=== PATIENT | female | born 1990 | race American Indian/Alaskan Native ===

== ENCOUNTER 2020-10-22 11:46 | Emergency (ER) | payer SELFPAY ==
[2020-10-22] MEDS ORDERED: ALBUTEROL 2.5 MG/3 ML NEBU IH ONE ×3 (11:54→12:06)
[2020-10-22] MEDS ORDERED: dexAMETHasone 20 MG/5 ML VIAL IV ONE (12:05)
[2020-10-22] MEDS ORDERED: IPRATROPIUM 0.02% NEBU 2.5 ML IH ONE ×2 (12:05→12:07)
--- NOTE | 2020-10-22 12:14 | Emergency Department Report ---
ED Asthma HPI - General Chief Complaint: Adult Asthma Stated Complaint: ASTHMA Time Seen by Provider: 10/22/20 12:05 Source: patient Mode of arrival: Ambulatory Limitations: No Limitations - History of Present Illness Initial Comments: 29-year-old -[place]os[place] female with a history of asthma presents to the emergency room in respiratory distress having an asthma attack. Patient states her symptoms started last night. She reports she has been using her nebulizer machine but feels that her medicine may be . Patient states that [place]. Patient denies any fever chills does report shortness of breath wheezing and not able to move air. MD Complaint: "asthma attack", shortness of breath, wheezing Onset/Timin -: days(s) Asthma History: childhood onset, history of frequent attac, history of prior ED visit, previously intubated (As a child) Severity: severe Context: allergen exposure Associated Symptoms: dry cough Treatments Prior to Arrival: inhaled bronchodilator - Related Data Current Asthma Therapy: inhaled bronchodilator Previous Rx's Medication Instructions Recorded Last Taken Type Albuterol Sulfate [Albuterol 0.63% 0.63 mg IH TID PRN #270 ml 10/22/20 Unknown Rx NEBS] Albuterol Sulfate [Proventil Hfa] 6.7 gm IH QID PRN #1 hfa.aer.ad 10/22/20 Unknown Rx Fluticasone/Salmeterol [Advair 1 each IH BID #1 blst.w.dev 10/22/20 Unknown Rx 250-50 Diskus] Prednisone [predniSONE 10 mg 10 mg PO .TAPER #1 tab.ds.pk 10/22/20 Unknown Rx (6-Day Pack, 21 Tabs)] Allergies Allergy/AdvReac Type Severity Reaction Status Date / Time No Known Allergies Allergy Unverified 10/22/20 11:47 ED Review of Systems ROS: Stated complaint: ASTHMA Other details as noted in HPI Comment: All other systems reviewed and negative ED Past Medical Hx - Past Medical History Previous Medical History?: Yes Hx Asthma: Yes - Medications Home Medications: Home Medications Medication Instructions Recorded Confirmed Last Taken Type Albuterol Sulfate [Albuterol 0.63% 0.63 mg IH TID PRN #270 ml 10/22/20 Unknown Rx NEBS] Albuterol Sulfate [Proventil Hfa] 6.7 gm IH QID PRN #1 hfa.aer.ad 10/22/20 Unknown Rx Fluticasone/Salmeterol [Advair 1 each IH BID #1 blst.w.dev 10/22/20 Unknown Rx 250-50 Diskus] Prednisone [predniSONE 10 mg 10 mg PO .TAPER #1 tab.ds.pk 10/22/20 Unknown Rx (6-Day Pack, 21 Tabs)] ED Physical Exam - General Limitations: No Limitations General appearance: alert, in no apparent distress - Head Head exam: Present: atraumatic, normocephalic - Eye Eye exam: Present: normal appearance - ENT ENT exam: Present: mucous membranes moist - Neck Neck exam: Present: normal inspection, full ROM - Respiratory Respiratory exam: Present: respiratory distress, wheezes, accessory muscle use, prolonged expiratory - Cardiovascular Cardiovascular Exam: Present: tachycardia - GI/Abdominal GI/Abdominal exam: Present: soft. Absent: distended, tenderness - Extremities Exam Extremities exam: Present: normal inspection - Back Exam Back exam: Present: normal inspection - Neurological Exam Neurological exam: Present: alert, oriented X3 - Psychiatric Psychiatric exam: Present: normal affect, normal mood ED Course Vital Signs 10/22/20 10/22/20 10/22/20 11:49 11:59 13:48 Temperature 98.1 F Pulse Rate 103 H 87 Pulse Rate [ 110 H Anterior Bilateral Throughout] Respiratory 26 H 20 Rate Respiratory 24 Rate [Anterior Bilateral Throughout] Blood Pressure 128/71 115/65 [Right] O2 Sat by Pulse 99 99 Oximetry ED Medical Decision Making - Medical Decision Making 29-year-old -[place] female with a history of asthma presents to the emergency room in respiratory distress having an asthma attack. Patient states her symptoms started last night. She reports she has been using her nebulizer machine but feels that her medicine may be . Patient states that [place] ago. Patient denies any fever chills does report shortness of breath wheezing and not able to move air. Patient was immediately placed in room 38 with respiratory at the bedside initiating albuterol. Provider which is me came in to assess patient she is using her accessory muscles having subclavicular retraction not able to speak full sentences without gasping for air. Chest is tight not moving much air long expiratory wheeze. Orders were placed for albuterol 10 mg inhalation Atrovent 1 mg inhalation dexamethasone 10 mg IM. Will reassess may need to consider magnesium and fluids. Patient ports she feels much better. We will discharge her on a prednisone pack refill her nebulizer solution as well as inhaler and place her on Advair 250/50. Will refer patient to motor vehicle operator road supervisor and a primary care provider. Critical Care Time: Yes (35) Critical care attestation.: If time is entered above; I have spent that time in minutes in the direct care of this critically ill patient, excluding procedure time. ED Disposition Clinical Impression: Asthma attack Disposition: DC- TO HOME OR SELFCARE Is pt being admited?: No Does the pt Need Aspirin: No Condition: Stable Instructions: Asthma, Adult, [id number] Additional Instructions: Please complete your prednisone. Use your inhaler as needed for wheezing when you are on the go and albuterol nebulizer treatments when you are at home. Please use your Advair pump twice a day as prescribed. Is very important you follow-up with a motor vehicle operator road supervisor and a primary care provider in the next 3 to 5 days. Be sure to increase your fluids. Prescriptions: Fluticasone/Salmeterol [Advair 250-50 Diskus] 1 each IH BID #1 blst.w.dev Albuterol Sulfate [Albuterol 0.63% NEBS] 0.63 mg IH TID PRN #270 ml PRN Reason: Wheezing Prednisone [predniSONE 10 mg (6-Day Pack, 21 Tabs)] 10 mg PO .TAPER #1 tab.ds.pk Albuterol Sulfate [Proventil Hfa] 6.7 gm IH QID PRN #1 hfa.aer.ad PRN Reason: Wheezing Referrals: PRIMARY CARE, [Primary Care Provider] - 3-5 Days BRITTANY SHAVER MD [Staff Physician] - 3-5 Days MIRLANDE FRANCO MD [Staff Physician] - 3-5 Days Forms: Work/School Release Form(ED) Time of Disposition: 15:45
[2020-10-22] MEDS ORDERED: MAGNESIUM SULFATE 2 GM/50 ML BAG IV ONE (13:09)
[2020-10-22] MEDS ORDERED: SODIUM CHLORIDE 0.9% 500 ML 500 ML IV ONE (13:10)
[2020-10-22 16:14] VITALS: BP 114/67
== END 2020-10-22 16:10 | disposition home or self-care (01) ==
LOC: ED 11:46
DX: J45.909 Unspecified asthma, uncomplicated (principal); Z79.899 Other long term (current) drug therapy
CPT/HCPCS: 94640; 96365; 96375; 99283; J1100; J3475; J7040; 94644

== ENCOUNTER 2020-12-05 17:45 | Emergency (ER) | payer SELFPAY | END 2020-12-06 04:59 | LOC: ED 17:45 | DX: R06.02 Shortness of breath (principal); Z53.21 Procedure and treatment not carried out due to patient leaving prior to being seen by health care provider ==